=== PATIENT | male | born 1985 | race Caucasian/White ===

== ENCOUNTER 2016-08-30 07:08 | Emergency (ER) | payer SELFPAY ==
[~2016-08-30] VITALS: Ht 170.2 cm; Wt 77.3 kg
[2016-08-30 07:16] VITALS: TEMP 97.9
[2016-08-30] MEDS ORDERED: VOLTAREN 75 DR75 MG PO (08:17)
[2016-08-30 08:57] VITALS: BP 132/82; PULSE 53
== END 2016-08-30 08:58 | disposition home or self-care (01) ==
LOC: COL.ER 07:08
DX: M77.32 Calcaneal spur, left foot (principal)